=== PATIENT | male | born 1960 | race Caucasian/White ===

== ENCOUNTER 2016-08-16 07:57 | Inpatient (IN) | payer MEDICARE, MEDICAID ==
[2016-08-16] MEDS ORDERED: RINGERS SOLUTION,LACTATED 1,000 ML IV PRN (08:34)
[2016-08-16] MEDS ORDERED: CEFAZOLIN SODIUM 1 GM in DEXTROSE 5%-WATER 50 ML IV SCH (08:45)
[2016-08-16 09:09] LABS: HEMATOCRIT 38.1 % (37.9-51.0); HEMOGLOBIN 12.7 g/dL (13.5-17.0); MEAN CORPUSCULAR HEMOGLOBIN 29.5 pg (27.0-33.4); MEAN CORPUSCULAR HGB CONC 33.4 g/dL (32.0-36.0); MEAN CORPUSCULAR VOLUME 88 fl (80-97); RED BLOOD COUNT 4.31 10^6/uL (4.35-5.55); RED CELL DISTRIBUTION WIDTH 15.1 % (11.5-14.0); WHITE BLOOD COUNT 10.3 10^3/uL (4.0-10.5)
[2016-08-16] MEDS ORDERED: ROCURONIUM BROMIDE INJ 50 MG/5 ML VIAL IV ONE (10:15)
[2016-08-16] MEDS ORDERED: GLYCOPYRROLATE INJ 0.4 MG/2 ML VIAL ONE (10:15)
[2016-08-16] MEDS ORDERED: ONDANSETRON HCL INJ/PF 4 MG/2 ML SDV ONE (10:15)
[2016-08-16] MEDS ORDERED: NEOSTIGMINE METHYLSULFATE 10 MG/10 ML VIAL ONE (10:15)
[2016-08-16] MEDS ORDERED: SUCCINYLCHOLINE CHLORIDE INJ 200 MG/10 ML VIAL ONE (10:15)
[2016-08-16] MEDS ORDERED: HYDROMORPHONE HCL INJ/PF 2 MG/ML AMPULE ONE (10:50)
[2016-08-16] MEDS ORDERED: MIDAZOLAM 2 MG/2 ML INJ ONE (10:50)
[2016-08-16] MEDS ORDERED: PROPOFOL INJ 200 MG/20 ML VIAL IV ONE (10:51)
[2016-08-16] MEDS ORDERED: GLUCAGON,HUMAN RECOMB 1 MG INJ ONE (11:21)
[2016-08-16] MEDS ORDERED: MEPERIDINE HCL/PF INJ 25 MG/1 ML DISP.SYRIN IV PRN (11:31)
[2016-08-16] MEDS ORDERED: DIPHENHYDRAMINE HCL 50 MG/ML VIAL IV PRN (11:31)
[2016-08-16] MEDS ORDERED: FENTANYL CITRATE INJ/PF 100 MCG/2 ML AMPUL IV PRN ×3 (11:31)
[2016-08-16] MEDS ORDERED: MORPHINE SULFATE 10 MG/ML INJ IV PRN ×2 (11:31→16:08)
[2016-08-16] MEDS ORDERED: PROMETHAZINE HCL INJ 25 MG/1 ML VIAL IV PRN ×2 (11:31)
[2016-08-16] MEDS ORDERED: OXYCODONE-ACETAMINOPHEN 5-325 MG TABLET PO PRN ×2 (11:31)
[2016-08-16] MEDS ORDERED: CEFAZOLIN INJ 1 GM VIAL ONE (13:12)
[2016-08-16] MEDS ORDERED: BUPIVACAINE INJ/PF LIPOSOME/PF 266 MG/20 ML SDV ONE (13:15)
[2016-08-16] MEDS ORDERED: FENTANYL CITRATE INJ/PF 250 MCG/5 ML AMPULE ONE (13:17)
[2016-08-16] MEDS ORDERED: BUPIVACAINE HCL 0.25 % INJ/PF (2.5 MG/1 ML) 30 ML VIAL ONE (13:17)
--- NOTE | 2016-08-16 14:22 | Operative Report ---
Operative Report DATE OF SURGERY: 08/16/16 PREOPERATIVE DIAGNOSIS: Retained foreign bodies of the stomach POSTOPERATIVE DIAGNOSIS: Same with peptic ulcer disease OPERATION: 1. Esophagogastroduodenoscopy with partial removal of multiple foreign bodies from the stomach. 2. Limited exploratory laparotomy, gastrotomy , completion removal of foreign body from the stomach. 3. Placement of ante- cardiac drain SURGEON: FELICITA IGLESIAS 1ST RACING DRIVER: NEHEMIAH MAZA ANESTHESIA: GA TISSUE REMOVED OR ALTERED: Multiple foreign bodies in the stomach COMPLICATIONS: None ESTIMATED BLOOD LOSS: scant INTRAOPERATIVE FINDINGS: See below PROCEDURE: After obtaining informed consent the patient taken the operating room where general anesthesia was induced. Surgical plan surgical timeout were conducted. The plan was to proceed with endoscopic removal of retained foreign bodies in the stomach. We were prepared for conversion to an open laparotomy if unsuccessful. The patient was placed in the semirecumbent position. The patient has been intubated oral tracheally with a #7 endotracheal tube. We performed upper endoscopy with the flexible adult upper endoscope. The pharynx and esophagus were essentially unremarkable. The GE junction was approximately 40 cm from the incisor. Upon entry into the stomach, multiple round semi-elongated masses were identified. No free, floating in the of the pylorus, but the largest masses were in the proximal stomach and gastric cardia. Graft of note there was distal Alor ulceration, with some however there was no augusto obstruction as there was no evidence of retained gastric contents. We are able to advance the gastroscope through the pylorus into the first and second portions of the duodenum. No evidence of retained foreign body duodenum We brought the scope back to the pylorus. Using a combination of multiple retrieving devices including forceps, snare, and rothnet, multiple fragments were removed from the stomach in a piecemeal fashion. Specimens were were semisolid to rubbery. We sent one to pathology and they concluded that most likely silicon, or some other foreign body but not vegetable matter. We spent the next 2 hours retrieving these rounded specimen ranging from 2-3 cm in diameter. This proceeded uneventfully, methodically and painstakingly. Right these efforts, due to size, we could not remove the largest foreign bodies mass which was a 5-6 cm material ball. Therefore we decided to convert to an open procedure complete, successful removal of the gastric foreign bodies. Endoscopy team to part of the room after successful removal of the adult gastroscope. Anesthesia did place a nasogastric tube. Arms were abducted, abdomen exposed, and the abdomen prepped and draped sterile fashion. Surgical plan surgical time out conducted. The abdomen was opened through a standard midline incision from the area to above the umbilicus. Quarter Percent Marcaine was used prior to the incision. Perineal cavity was carefully opened, and a small bowel for a tract was positioned to place. Ostomy, there was a significant amount of gas in the small bowel and transverse colon. The viscera were tucked away, and the anterior surface of the midportion of the stomach was exposed. We planned our gastrotomy which was vertically oriented in the mid portion of the stomach. 2 3 -0 PDS sutures were placed approximately 5 cm apart and a vertically oriented gastrotomy was made with electrocautery. Spillage of gastric contents. Previously position nasogastric tube into the antrum. Using a Aramis's forceps and gentle manipulation of the stomach, we were able to bring the largest foreign body retained in the stomach out through the gastrotomy. This were suctioned out. We felt like this was in fact the last of the foreign bodies retained in the stomach based on a thorough, comprehensive endoscopic experience 2 hours earlier. We felt that admission and been accomplished. The gastrotomy was closed vertically with a inner running layer of 3-0 PDS suture and outer layer of interrupted horizontally oriented mattress sutures of 3-0 PDS. A large Evin drain was placed in the left upper quadrant trimmed to the appropriate length, secured to the anterior abdominal wall with 2-0 Prolene suture, the free and placed over the anterior stomach wall. Sponge and needle counts are correct. Abdominal wall was closed with 2 double-stranded #1 PDS sutures, skin closed with lizbeth Postoperatively well. Nasogastric tube, and Castellano catheter left in position. Of note the Castellano catheter was inserted prior to laparotomy. The patient was successfully extubated and recovered The physician advertising sales assistant, Ms. Maza, provided assistance during this case by: Assisting retracting tissue, instillation of local anesthesia and closure of skin incisions.
[2016-08-16] MEDS ORDERED: FENTANYL CITRATE INJ/PF 100 MCG/2 ML AMPUL ONE (14:28)
[2016-08-16] MEDS ORDERED: FENTANYL CITRATE INJ/PF 100 MCG/2 ML AMPUL INJ ONE (14:30)
[2016-08-16] MEDS ORDERED: PHARMACY COMMUNICATION ORDER MC NR (14:30)
--- NOTE | 2016-08-16 16:41 | PDOC CONSULTATION ---
Consultation Consult Date: 08/16/16 Attending physician:: FELICITA IGLESIAS Consult reason:: Pain management History of Present Illness Admission Date/PCP: 08/16/2016 Patient complains of: Back pain History of Present Illness: GRIFFIN FRANK is a 56 year old male who has chronic back pain for which she takes methadone 10 mg 3 times a day who was admitted from the surgery service after having an open gastrotomy for removal of foreign body. The surgeons have asked us to manage his pain medicine given the fact that he takes chronic methadone. Past Medical History Cardiac Medical History: Denies: Coronary Artery Disease, Myocardial Infarction, Hypertension Pulmonary Medical History: Denies: Asthma, Bronchitis, Chronic Obstructive Pulmonary Disease (COPD), Pneumonia Neurological Medical History: Denies: Seizures Endocrine Medical History: Reports: None Malignancy Medical History: Reports: None GI Medical History: Reports: Other - Irritable bowel syndrome Musculoskeltal Medical History: Denies: Arthritis Skin Medical History: Reports: None Traumatic Medical History: Reports: None Hematology: Reports: Anemia Infectious Medical History: Reports: None Past Surgical History Past Surgical History: Reports: Appendectomy, Cholecystectomy, Orthopedic Surgery - Back surgery Social History Information Source: Patient Smoking Status: Current Every Day Smoker Frequency of Alcohol Use: None Hx Recreational Drug Use: No Drugs: None - Advance Directive Resuscitation Status: Full Code Family History Family History: Mother is 73 alive and has asthma and hypertension. Father's health history is unknown. Parental Family History Reviewed: Yes Children Family History Reviewed: No Sibling(s) Family History Reviewed.: No Medication/Allergy Home Medications: Atorvastatin Calcium 20 mg PO QHS 08/16/16 Dicyclomine HCl 20 mg PO QID 08/16/16 Methadone HCl 10 mg PO TID 08/16/16 Methocarbamol 500 mg PO TID 08/16/16 Nortriptyline HCl [Pamelor] 50 mg PO QHS 08/16/16 Omeprazole 40 mg PO BID 08/16/16 Pantoprazole Sodium 40 mg PO DAILY 08/16/16 Sucralfate [Carafate 1 gm Tablet] 1 gm PO ACHS 08/16/16 Tramadol HCl 50 mg PO Q4H 08/16/16 Allergies/Adverse Reactions: No Known Allergies Allergy (Unverified 08/16/16 08:47) Review of Systems Constitutional: ABSENT: chills, fever(s), headache(s), weight gain, weight loss Eyes: ABSENT: visual disturbances Ears: ABSENT: hearing changes Cardiovascular: ABSENT: chest pain, dyspnea on exertion, edema, orthropnea, palpitations Respiratory: ABSENT: cough, hemoptysis Gastrointestinal: PRESENT: as per HPI Genitourinary: ABSENT: dysuria, hematuria Musculoskeletal: PRESENT: back pain. ABSENT: joint swelling Integumentary: ABSENT: rash, wounds Neurological: ABSENT: abnormal gait, abnormal speech, confusion, dizziness, focal weakness, syncope Psychiatric: ABSENT: anxiety, depression Endocrine: ABSENT: cold intolerance, heat intolerance, polydipsia, polyuria Hematologic/Lymphatic: ABSENT: easy bleeding, easy bruising Physical Exam Vital Signs: Temp Pulse Resp BP Pulse Ox 98.2 F 86 15 147/86 H 97 08/16/16 14:13 08/16/16 14:58 08/16/16 14:58 08/16/16 14:58 08/16/16 14:58 Intake & Output 08/15/16 08/16/16 08/17/16 06:59 06:59 06:59 Intake Total 2150 Output Total 328 Balance 1822 Weight 72.12 kg General appearance: PRESENT: no acute distress Head exam: PRESENT: atraumatic, normocephalic Eye exam: PRESENT: conjunctiva pink, EOMI, PERRLA. ABSENT: scleral icterus Ear exam: PRESENT: normal external ear exam Mouth exam: PRESENT: moist, tongue midline Neck exam: ABSENT: carotid bruit, JVD, lymphadenopathy, thyromegaly Respiratory exam: PRESENT: clear to auscultation cristi. ABSENT: rales, rhonchi, wheezes Cardiovascular exam: PRESENT: RRR. ABSENT: diastolic murmur, rubs, systolic murmur Pulses: PRESENT: normal dorsalis pedis pul Vascular exam: PRESENT: normal capillary refill GI/Abdominal exam: PRESENT: other - Abdominal dressing in place with a drain in place. Rectal exam: PRESENT: deferred Extremities exam: PRESENT: full ROM. ABSENT: calf tenderness, clubbing, pedal edema Neurological exam: PRESENT: alert, awake, oriented to person, oriented to place , oriented to time, oriented to situation, CN II-XII grossly intact. ABSENT: motor sensory deficit Psychiatric exam: PRESENT: appropriate affect Skin exam: PRESENT: dry, intact, warm. ABSENT: cyanosis, rash Results Laboratory Results: 08/16/16 08:53 08/16/16 08:53 WBC 10.3 RBC 4.31 L Hgb 12.7 L Hct 38.1 MCV 88 MCH 29.5 MCHC 33.4 RDW 15.1 H Plt Count 348 Assessment & Plan - Diagnosis (1) Bezoar Is this a current diagnosis for this admission?: YesPlan: Patient had surgery today with removal of foreign body from his stomach (2) Back pain Is this a current diagnosis for this admission?: YesPlan: Patient is chronically on methadone. We'll give IV morphine and increase as needed. (3) Hyperlipidemia Is this a current diagnosis for this admission?: YesPlan: We'll restart Lipitor when he is able to take by mouth (4) Irritable bowel syndrome (IBS) Is this a current diagnosis for this admission?: Yes - Time Time Spent: 50 to 70 Minutes - Inpatient Certification Medical Necessity: Need Close Monitoring Due to Risk of Patient Decompensation, Need for Surgery
[2016-08-16] MEDS: MORPHINE SULFATE 10 MG/ML INJ IV PRN ×3 (18:41→23:06)
[2016-08-16] MEDS: PANTOPRAZOLE SODIUM 40 MG VIAL IV SCH (21:28)
[2016-08-16] MEDS: DEXTROSE 5%-LACTATED RINGERS 1,000 ML IV PRN (21:29)
[2016-08-17] MEDS: MORPHINE SULFATE 10 MG/ML INJ IV PRN ×8 (01:35→20:09)
[2016-08-17] MEDS: DEXTROSE 5%-LACTATED RINGERS 1,000 ML IV PRN ×3 (05:09→20:09)
[2016-08-17] MEDS: PANTOPRAZOLE SODIUM 40 MG VIAL IV SCH ×2 (09:29→21:12)
[2016-08-17] MEDS: KETOROLAC TROMETHAMINE INJ/PF 30 MG/1 ML SDV IV PRN ×3 (09:29→21:58)
[2016-08-17] MEDS: FENTANYL 50 MCG/HR PATCH.TD72 TD SCH (09:29)
--- NOTE | 2016-08-17 10:21 | PDOC PROGRESS REPORT ---
Subjective Progress Note for:: 08/17/16 Subjective:: Complaining of abdominal pain; the patient had Castellano catheter removed and is voiding. Physical Exam Vital Signs: Temp Pulse Resp BP Pulse Ox 98.2 F 74 16 135/85 H 99 08/17/16 08:00 08/17/16 08:00 08/17/16 08:00 08/17/16 08:00 08/17/16 08:00 Intake & Output 08/16/16 08/17/16 08/18/16 06:59 06:59 06:59 Intake Total 3950 2401 Output Total 2409 175 Balance 1541 2226 Weight 7.8 kg General appearance: PRESENT: no acute distress Head exam: PRESENT: other - Nasogastric tube draining bilious material, approximate 500 cc overnight GI/Abdominal exam: PRESENT: other - A midline incision covered; drain with minimal serous Results Laboratory Results: 08/16/16 08:53 Assessment & Plan - Diagnosis (1) Bezoar Is this a current diagnosis for this admission?: YesPlan: 1. Patient is one day status post EGD, foreign body extraction,, conversion to exploratory laparotomy, gastrotomy, doing well no complications. Castellano catheter out, voiding. Nasogastric tube draining appropriately. 2. Will ambulate the patient, keep nothing by mouth 3. Appreciate hospitalist assistance
--- NOTE | 2016-08-17 11:33 | PDOC PROGRESS REPORT ---
Subjective Progress Note for:: 08/17/16 Subjective:: This reports the morphine helps with the pain but he does have worsening pain in between his dosing. Physical Exam Vital Signs: Temp Pulse Resp BP Pulse Ox 98.2 F 74 16 135/85 H 99 08/17/16 08:00 08/17/16 08:00 08/17/16 08:00 08/17/16 08:00 08/17/16 08:00 Intake & Output 08/16/16 08/17/16 08/18/16 06:59 06:59 06:59 Intake Total 3950 2401 Output Total 2409 175 Balance 1541 2226 Weight 7.8 kg General appearance: PRESENT: no acute distress Eye exam: PRESENT: conjunctiva pink. ABSENT: scleral icterus Ear exam: PRESENT: normal external ear exam Mouth exam: PRESENT: moist, tongue midline Neck exam: ABSENT: JVD Respiratory exam: PRESENT: clear to auscultation cristi. ABSENT: rales, rhonchi, wheezes Cardiovascular exam: PRESENT: RRR. ABSENT: diastolic murmur, rubs, systolic murmur GI/Abdominal exam: PRESENT: tenderness - Minimal tenderness around surgical site.. ABSENT: distended, guarding, mass, organolmegaly, rebound Extremities exam: PRESENT: full ROM. ABSENT: calf tenderness, clubbing, pedal edema Neurological exam: PRESENT: alert, awake, oriented to person, oriented to place , oriented to time, oriented to situation Psychiatric exam: PRESENT: appropriate affect Skin exam: PRESENT: dry, intact, warm. ABSENT: cyanosis, rash Results Laboratory Results: 08/16/16 08:53 Assessment & Plan - Diagnosis (1) Bezoar Is this a current diagnosis for this admission?: YesPlan: Patient had surgery with removal of foreign body from his stomach (2) Back pain Is this a current diagnosis for this admission?: YesPlan: Patient is chronically on methadone. We'll start the patient on a fentanyl patch until he is able to take his methadone orally. We'll continue with morphine IV when necessary. (3) Hyperlipidemia Is this a current diagnosis for this admission?: YesPlan: We'll restart Lipitor when he is able to take by mouth (4) Irritable bowel syndrome (IBS) Is this a current diagnosis for this admission?: Yes - Time Time Spent with patient: 15-24 minutes - Inpatient Certification Medical Necessity: Need For IV Fluids
[2016-08-18] MEDS: DEXTROSE 5%-LACTATED RINGERS 1,000 ML IV PRN ×3 (03:15→22:04)
[2016-08-18] MEDS: KETOROLAC TROMETHAMINE INJ/PF 30 MG/1 ML SDV IV PRN ×3 (04:52→19:34)
[2016-08-18 06:36] LABS: ANION GAP 9 (5-19); BLOOD UREA NITROGEN 11 mg/dL (7-20); CALCIUM 8.8 mg/dL (8.4-10.2); CARBON DIOXIDE 27 mmol/L (22-30); CHLORIDE 103 mmol/L (98-107); CREATININE RESULT 0.51 mg/dL (0.52-1.25); GLUCOSE 118 mg/dL (75-110); POTASSIUM 3.5 mmol/L (3.6-5.0); SODIUM 138.5 mmol/L (137-145)
--- NOTE | 2016-08-18 08:00 | PDOC PROGRESS REPORT ---
Subjective Progress Note for:: 08/18/16 Subjective:: Past flatus; ambulating ; walked in halls 3 times. Physical Exam Vital Signs: Temp Pulse Resp BP Pulse Ox 98.8 F 76 18 133/85 H 100 08/18/16 07:17 08/18/16 07:17 08/18/16 07:17 08/18/16 07:17 08/18/16 07:17 Intake & Output 08/17/16 08/18/16 08/19/16 06:59 06:59 06:59 Intake Total 3950 4201 Output Total 2409 925 Balance 1541 3276 Weight 7.8 kg 72.7 kg General appearance: PRESENT: no acute distress Head exam: PRESENT: other - Nasogastric tube was approximately 3 50 mL of drainage overnight GI/Abdominal exam: PRESENT: other - Dressing dry and intact; serous sanguinous drainage from abdominal drain; the abdomen is soft nontender no peritoneal signs Results Laboratory Results: 08/16/16 08:53 08/18/16 05:50 08/18/16 05:50 Sodium 138.5 Potassium 3.5 L Chloride 103 Carbon Dioxide 27 Anion Gap 9 BUN 11 Creatinine 0.51 L Est GFR ( Amer) > 60 Est GFR (Non-Af Amer) > 60 Glucose 118 H Calcium 8.8 Assessment & Plan - Diagnosis (1) Bezoar Is this a current diagnosis for this admission?: YesPlan: 1. Change dressing today, leave drain in 2. Will obtain limited upper GI study to make sure there is no leak in the stomach, no gastric outlet obstruction as the patient did have pyloric channel ulceration. If study negative, we will pull nasogastric tube.
[2016-08-18] MEDS: PANTOPRAZOLE SODIUM 40 MG VIAL IV SCH ×2 (09:07→22:06)
[2016-08-18] MEDS: MORPHINE SULFATE 10 MG/ML INJ IV PRN ×3 (09:07→22:07)
--- NOTE | 2016-08-18 10:32 | PDOC PROGRESS REPORT ---
Subjective Progress Note for:: 08/18/16 Subjective:: Reports the pain is controlled with the Duragesic patch. Physical Exam Vital Signs: Temp Pulse Resp BP Pulse Ox 98.8 F 76 18 133/85 H 100 08/18/16 07:17 08/18/16 07:17 08/18/16 07:17 08/18/16 07:17 08/18/16 07:17 Intake & Output 08/17/16 08/18/16 08/19/16 06:59 06:59 06:59 Intake Total 3950 4201 Output Total 2409 925 Balance 1541 3276 Weight 7.8 kg 72.7 kg General appearance: PRESENT: no acute distress Eye exam: PRESENT: conjunctiva pink Neck exam: ABSENT: JVD Respiratory exam: PRESENT: clear to auscultation cristi. ABSENT: rales, rhonchi, wheezes Cardiovascular exam: PRESENT: RRR. ABSENT: diastolic murmur, rubs, systolic murmur GI/Abdominal exam: PRESENT: soft, other - Patient has a surgical dressing in place in the left upper quadrant.. ABSENT: distended, guarding, mass, organolmegaly, rebound Extremities exam: ABSENT: calf tenderness, clubbing, pedal edema Neurological exam: PRESENT: alert, awake, oriented to person, oriented to place , oriented to time, oriented to situation Psychiatric exam: PRESENT: appropriate affect Results Laboratory Results: 08/16/16 08:53 08/18/16 05:50 08/18/16 05:50 Sodium 138.5 Potassium 3.5 L Chloride 103 Carbon Dioxide 27 Anion Gap 9 BUN 11 Creatinine 0.51 L Est GFR ( Amer) > 60 Est GFR (Non-Af Amer) > 60 Glucose 118 H Calcium 8.8 Assessment & Plan - Diagnosis (1) Bezoar Is this a current diagnosis for this admission?: YesPlan: Patient had surgery with removal of foreign body from his stomach (2) Back pain Is this a current diagnosis for this admission?: YesPlan: Patient is chronically on methadone. Patient is controlled with fentanyl patch. When he is able to take by mouth would switch back to his chronic methadone dose. (3) Hyperlipidemia Is this a current diagnosis for this admission?: YesPlan: We'll restart Lipitor when he is able to take by mouth (4) Irritable bowel syndrome (IBS) Is this a current diagnosis for this admission?: Yes - Time Time Spent with patient: 25-34 minutes - Inpatient Certification Medical Necessity: Need Close Monitoring Due to Risk of Patient Decompensation, Need For IV Fluids
[2016-08-19] MEDS: KETOROLAC TROMETHAMINE INJ/PF 30 MG/1 ML SDV IV PRN ×3 (02:56→19:52)
[2016-08-19] MEDS: DEXTROSE 5%-LACTATED RINGERS 1,000 ML IV PRN ×3 (02:56→19:53)
[2016-08-19 06:39] LABS: ABSOLUTE BASOPHILS # (AUTO) 0.1 10^3/uL (0.0-0.2); ABSOLUTE EOSINOPHILS # (AUTO) 0.4 10^3/uL (0.0-0.6); ABSOLUTE LYMPHOCYTES (AUTO) 1.6 10^3/uL (0.5-4.7); ABSOLUTE MONOCYTES (AUTO) 0.8 10^3/uL (0.1-1.4); ABSOLUTE NEUT (AUTO) 5.7 10^3/uL (1.7-8.2); BASOPHILS % (AUTO) 0.8 % (0-2); HEMATOCRIT 33.4 % (37.9-51.0); HEMOGLOBIN 11.1 g/dL (13.5-17.0); HGB HCT DIFFERENCE -0.1; LYMPHOCYTES % (AUTO) 18.8 % (13-45); MEAN CORPUSCULAR HEMOGLOBIN 29.4 pg (27.0-33.4); MEAN CORPUSCULAR HGB CONC 33.2 g/dL (32.0-36.0); MEAN CORPUSCULAR VOLUME 88 fl (80-97); MONOCYTES % (AUTO) 9.4 % (3-13); RED BLOOD COUNT 3.78 10^6/uL (4.35-5.55); WHITE BLOOD COUNT 8.6 10^3/uL (4.0-10.5)
[2016-08-19 06:54] LABS: ANION GAP 9 (5-19); BLOOD UREA NITROGEN 10 mg/dL (7-20); CALCIUM 8.8 mg/dL (8.4-10.2); CARBON DIOXIDE 27 mmol/L (22-30); CHLORIDE 103 mmol/L (98-107); CREATININE RESULT 0.57 mg/dL (0.52-1.25); GLUCOSE 106 mg/dL (75-110); POTASSIUM 3.9 mmol/L (3.6-5.0); SODIUM 138.9 mmol/L (137-145)
[2016-08-19] MEDS: PANTOPRAZOLE SODIUM 40 MG VIAL IV SCH (09:13)
[2016-08-19] MEDS: MORPHINE SULFATE 10 MG/ML INJ IV PRN ×4 (09:13→22:59)
--- NOTE | 2016-08-19 14:40 | PDOC PROGRESS REPORT ---
Subjective Progress Note for:: 08/19/16 Subjective:: Reports the pain is controlled with the Duragesic patch. Physical Exam Vital Signs: Temp Pulse Resp BP Pulse Ox 98.4 F 70 18 121/56 L 99 08/19/16 11:49 08/19/16 11:49 08/19/16 11:49 08/19/16 11:49 08/19/16 11:49 Intake & Output 08/18/16 08/19/16 08/20/16 06:59 06:59 06:59 Intake Total 4201 3150 3372 Output Total 925 1190 25 Balance 3276 1960 3347 Weight 72.7 kg 78.3 kg General appearance: PRESENT: no acute distress Eye exam: PRESENT: conjunctiva pink. ABSENT: scleral icterus Mouth exam: PRESENT: moist, tongue midline Neck exam: ABSENT: JVD Respiratory exam: PRESENT: clear to auscultation cristi. ABSENT: rales, rhonchi, wheezes Cardiovascular exam: PRESENT: RRR. ABSENT: diastolic murmur, rubs, systolic murmur GI/Abdominal exam: PRESENT: other - Surgical dressing in place Extremities exam: ABSENT: calf tenderness, clubbing, pedal edema Neurological exam: PRESENT: alert, awake, oriented to person, oriented to place , oriented to time, oriented to situation Psychiatric exam: PRESENT: appropriate affect Skin exam: PRESENT: dry, intact, warm. ABSENT: cyanosis, rash Results Laboratory Results: 08/19/16 05:46 08/19/16 05:46 08/19/16 08/19/16 05:46 05:46 WBC 8.6 RBC 3.78 L Hgb 11.1 L Hct 33.4 L MCV 88 MCH 29.4 MCHC 33.2 RDW 15.0 H Plt Count 257 Seg Neutrophils % 66.0 Lymphocytes % 18.8 Monocytes % 9.4 Eosinophils % 5.0 Basophils % 0.8 Absolute Neutrophils 5.7 Absolute Lymphocytes 1.6 Absolute Monocytes 0.8 Absolute Eosinophils 0.4 Absolute Basophils 0.1 Sodium 138.9 Potassium 3.9 Chloride 103 Carbon Dioxide 27 Anion Gap 9 BUN 10 Creatinine 0.57 Est GFR ( Amer) > 60 Est GFR (Non-Af Amer) > 60 Glucose 106 Calcium 8.8 Impressions: Upper GI and Small Bowel X-Ray 08/18/16 07:57 IMPRESSION: NORMAL SINGLE CONTRAST SWALLOW UPPER GI SERIES. Normal proximal small bowel. Assessment & Plan - Diagnosis (1) Bezoar Is this a current diagnosis for this admission?: YesPlan: Patient had surgery with removal of foreign body from his stomach (2) Back pain Is this a current diagnosis for this admission?: YesPlan: Patient is chronically on methadone. Patient is controlled with fentanyl patch. When he is able to take by mouth would switch back to his chronic methadone dose. (3) Hyperlipidemia Is this a current diagnosis for this admission?: YesPlan: We'll restart Lipitor when he is able to take by mouth (4) Irritable bowel syndrome (IBS) Is this a current diagnosis for this admission?: Yes - Time Time Spent with patient: 25-34 minutes - Inpatient Certification Medical Necessity: Need Close Monitoring Due to Risk of Patient Decompensation
--- NOTE | 2016-08-19 15:45 | PDOC PROGRESS REPORT ---
Subjective Subjective:: No nausea or vomiting. + Flatus/BM. Minimal discomfort. Physical Exam Vital Signs: Temp Pulse Resp BP Pulse Ox 98.4 F 70 18 121/56 L 99 08/19/16 11:49 08/19/16 11:49 08/19/16 11:49 08/19/16 11:49 08/19/16 11:49 Intake & Output 08/18/16 08/19/16 08/20/16 06:59 06:59 06:59 Intake Total 4201 3150 3372 Output Total 925 1190 25 Balance 3276 1960 3347 Weight 72.7 kg 78.3 kg General appearance: PRESENT: no acute distress Eye exam: PRESENT: EOMI GI/Abdominal exam: PRESENT: soft, tenderness - Appropriate incisional tenderness. Incision is clean with waffle dressing. MACK drain has benign serosanguineous. Some bowel sounds.. ABSENT: distended Neurological exam: PRESENT: alert, oriented to situation Results Laboratory Results: 08/19/16 05:46 08/19/16 05:46 08/19/16 08/19/16 05:46 05:46 WBC 8.6 RBC 3.78 L Hgb 11.1 L Hct 33.4 L MCV 88 MCH 29.4 MCHC 33.2 RDW 15.0 H Plt Count 257 Seg Neutrophils % 66.0 Lymphocytes % 18.8 Monocytes % 9.4 Eosinophils % 5.0 Basophils % 0.8 Absolute Neutrophils 5.7 Absolute Lymphocytes 1.6 Absolute Monocytes 0.8 Absolute Eosinophils 0.4 Absolute Basophils 0.1 Sodium 138.9 Potassium 3.9 Chloride 103 Carbon Dioxide 27 Anion Gap 9 BUN 10 Creatinine 0.57 Est GFR ( Amer) > 60 Est GFR (Non-Af Amer) > 60 Glucose 106 Calcium 8.8 Impressions: Upper GI and Small Bowel X-Ray 08/18/16 07:57 IMPRESSION: NORMAL SINGLE CONTRAST SWALLOW UPPER GI SERIES. Normal proximal small bowel. Status: Image reviewed by me Assessment & Plan - Diagnosis (1) Foreign body ingestion Qualifiers: Encounter type: initial encounter Qualified Code(s): T18.9XXA - Foreign body of alimentary tract, part unspecified, initial encounter Is this a current diagnosis for this admission?: YesPlan: Status post gastrotomy with foreign body removal. Doing well. Swallow study yesterday was normal, no leak. Advance diet to clear liquids. (2) Bezoar Qualifiers: Encounter type: initial encounter Qualified Code(s): T18.9XXA - Foreign body of alimentary tract, part unspecified, initial encounter Is this a current diagnosis for this admission?: Yes
[2016-08-20] MEDS: MORPHINE SULFATE 10 MG/ML INJ IV PRN (01:34)
[2016-08-20] MEDS: KETOROLAC TROMETHAMINE INJ/PF 30 MG/1 ML SDV IV PRN ×4 (02:32→22:19)
[2016-08-20] MEDS: DEXTROSE 5%-LACTATED RINGERS 1,000 ML IV PRN (09:19)
[2016-08-20] MEDS: FENTANYL 50 MCG/HR PATCH.TD72 TD SCH (09:22)
--- NOTE | 2016-08-20 11:13 | PDOC PROGRESS REPORT ---
Subjective Progress Note for:: 08/20/16 Subjective:: Reports the pain is controlled with the Duragesic patch. Physical Exam Vital Signs: Temp Pulse Resp BP Pulse Ox 98.1 F 65 18 150/83 H 98 08/20/16 07:27 08/20/16 07:27 08/20/16 07:27 08/20/16 07:27 08/20/16 07:27 Intake & Output 08/19/16 08/20/16 08/21/16 06:59 06:59 06:59 Intake Total 3150 5277 Output Total 1190 55 Balance 1960 5222 Weight 78.3 kg 79.3 kg General appearance: PRESENT: no acute distress Eye exam: PRESENT: conjunctiva pink. ABSENT: scleral icterus Mouth exam: PRESENT: moist, tongue midline Neck exam: ABSENT: JVD Respiratory exam: PRESENT: clear to auscultation cristi. ABSENT: rales, rhonchi, wheezes Cardiovascular exam: PRESENT: RRR. ABSENT: diastolic murmur, rubs, systolic murmur GI/Abdominal exam: PRESENT: other - Dressing in place on the abdomen Extremities exam: ABSENT: calf tenderness, clubbing, pedal edema Neurological exam: PRESENT: alert, awake, oriented to person, oriented to place , oriented to time, oriented to situation Psychiatric exam: PRESENT: appropriate affect Results Laboratory Results: 08/19/16 05:46 08/19/16 05:46 Impressions: Upper GI and Small Bowel X-Ray 08/18/16 07:57 IMPRESSION: NORMAL SINGLE CONTRAST SWALLOW UPPER GI SERIES. Normal proximal small bowel. Assessment & Plan - Diagnosis (1) Bezoar Qualifiers: Encounter type: initial encounter Qualified Code(s): T18.9XXA - Foreign body of alimentary tract, part unspecified, initial encounter Is this a current diagnosis for this admission?: YesPlan: Patient had surgery with removal of foreign body from his stomach (2) Back pain Is this a current diagnosis for this admission?: YesPlan: Patient is chronically on methadone. Patient is controlled with fentanyl patch. When he is on a regular diet would switch back to his chronic methadone dose. (3) Hyperlipidemia Is this a current diagnosis for this admission?: YesPlan: We'll restart Lipitor when he is able to take by mouth (4) Irritable bowel syndrome (IBS) Is this a current diagnosis for this admission?: Yes - Time Time Spent with patient: 25-34 minutes - Inpatient Certification Medical Necessity: Need Close Monitoring Due to Risk of Patient Decompensation
[2016-08-20] MEDS ORDERED: OXYCODONE-ACETAMINOPHEN 5-325 MG TABLET PO PRN (11:50)
--- NOTE | 2016-08-20 11:50 | PDOC PROGRESS REPORT ---
Subjective Progress Note for:: 08/20/16 Subjective:: No complaints, positive flatus, tolerating clear liquids. Physical Exam Vital Signs: Temp Pulse Resp BP Pulse Ox 98.1 F 65 18 150/83 H 98 08/20/16 07:27 08/20/16 07:27 08/20/16 07:27 08/20/16 07:27 08/20/16 07:27 Intake & Output 08/19/16 08/20/16 08/21/16 06:59 06:59 06:59 Intake Total 3150 5277 Output Total 1190 55 Balance 1960 5222 Weight 78.3 kg 79.3 kg General appearance: PRESENT: no acute distress GI/Abdominal exam: PRESENT: other - Soft, nontender, lizbeth intact; drain removed uneventfully Results Laboratory Results: 08/19/16 05:46 08/19/16 05:46 Impressions: Upper GI and Small Bowel X-Ray 08/18/16 07:57 IMPRESSION: NORMAL SINGLE CONTRAST SWALLOW UPPER GI SERIES. Normal proximal small bowel. Assessment & Plan - Diagnosis (1) Bezoar Qualifiers: Encounter type: initial encounter Qualified Code(s): T18.9XXA - Foreign body of alimentary tract, part unspecified, initial encounter Is this a current diagnosis for this admission?: Yes (2) Foreign body ingestion Qualifiers: Encounter type: initial encounter Qualified Code(s): T18.9XXA - Foreign body of alimentary tract, part unspecified, initial encounter Is this a current diagnosis for this admission?: YesPlan: 1. Patient is 4 days status post gastrotomy, foreign body removal. He is doing well without complications. 2. Patient on clear liquids, start by mouth pain medication, DC IV, allowed patient to shower, anticipate discharge in next 24
[2016-08-20] MEDS: FAMOTIDINE 20 MG TABLET PO SCH (22:20)
[2016-08-21] MEDS: KETOROLAC TROMETHAMINE INJ/PF 30 MG/1 ML SDV IV PRN ×2 (05:47→12:44)
[2016-08-21 07:22] LABS: ABSOLUTE BASOPHILS # (AUTO) 0.1 10^3/uL (0.0-0.2); ABSOLUTE EOSINOPHILS # (AUTO) 0.5 10^3/uL (0.0-0.6); ABSOLUTE LYMPHOCYTES (AUTO) 1.6 10^3/uL (0.5-4.7); ABSOLUTE MONOCYTES (AUTO) 0.7 10^3/uL (0.1-1.4); ABSOLUTE NEUT (AUTO) 6.6 10^3/uL (1.7-8.2); BASOPHILS % (AUTO) 0.8 % (0-2); EOSINOPHILS % (AUTO) 4.8 % (0-6); HEMATOCRIT 33.4 % (37.9-51.0); HEMOGLOBIN 11.3 g/dL (13.5-17.0); HGB HCT DIFFERENCE 0.5; MEAN CORPUSCULAR HEMOGLOBIN 29.8 pg (27.0-33.4); MEAN CORPUSCULAR HGB CONC 33.9 g/dL (32.0-36.0); MEAN CORPUSCULAR VOLUME 88 fl (80-97); MONOCYTES % (AUTO) 7.8 % (3-13); RED BLOOD COUNT 3.79 10^6/uL (4.35-5.55); RED CELL DISTRIBUTION WIDTH 15.1 % (11.5-14.0); SEGMENTED NEUTROPHILS % (AUTO) 69.6 % (42-78); WHITE BLOOD COUNT 9.5 10^3/uL (4.0-10.5)
--- NOTE | 2016-08-21 09:43 | DISCHARGE SUMMARY E ---
Discharge Summary NAME: GRIFFIN FRANK : 1960 AGE: 56Y ADMITTED: 08/16/2016 DISCHARGED: 08/21/2016 REASON FOR ADMISSION: Retained foreign body in the stomach. SUMMARY OF HOSPITALIZATION: The patient is a 56-year-old white male who was found to have a retained foreign body in the stomach. He was brought to Ambulatory Surgery for removal. The patient was taken to the operating room by Dr. Greenberg on 08/16/2016 where he underwent esophagogastroduodenoscopy, partial removal of foreign bodies in the stomach, limited exploratory laparotomy, gastrotomy, and complete removal of retained foreign bodies. The patient tolerated the procedure well. Postoperatively, he did well, nasogastric tube removed, contrast study postoperative day 3 showed no evidence of a gastric leak with good gastric emptying. He was started on a diet and this was advanced to full liquids. The patient was also found to have evidence of peptic ulcer disease with ulcer at the pylorus. He was given appropriate antiulcer medication. By the fourth postoperative day, he was felt ready for discharge. FINAL DIAGNOSES: 1. Retained foreign body status post esophagogastroduodenoscopy, exploratory laparotomy, gastrotomy with foreign body removal. 2. Peptic ulcer disease. 3. History of methadone dependency. RECOMMENDATIONS: 1. Patient will be discharged home on full liquids, return to [facility] to see Dr. Greenberg or REINIER for staple removal. 2. Patient will be on Protonix 40 mg p.o. b.i.d.; patient will be provided a limited supply of Percocet, quantity 15. DICTATING PHYSICIAN: FELICITA GREENBERG M.D. [id number] PHY#: [id number] ID: [id number] JOB#: [id number] ACCT: [id number] cc:FELICITA GREENBERG M.D. >
[2016-08-21] MEDS ORDERED: PANTOPRAZOLE SODIUM 40 MG VIAL IV SCH (10:00)
[2016-08-21] MEDS: FAMOTIDINE 20 MG TABLET PO SCH (10:09)
[2016-08-21 13:04] VITALS: BP 139/80
--- NOTE | 2016-08-21 13:19 | PDOC PROGRESS REPORT ---
Subjective Progress Note for:: 08/21/16 Subjective:: Reports the pain is controlled with the Duragesic patch. He is taking liquids without difficulty. Physical Exam Vital Signs: Temp Pulse Resp BP Pulse Ox 98.2 F 63 16 138/79 H 98 08/21/16 12:26 08/21/16 12:26 08/21/16 12:26 08/21/16 12:26 08/21/16 12:26 Intake & Output 08/20/16 08/21/16 08/22/16 06:59 06:59 06:59 Intake Total 5277 1420 Output Total 55 Balance 5222 1420 Weight 79.3 kg 75.1 kg General appearance: PRESENT: no acute distress Eye exam: PRESENT: conjunctiva pink. ABSENT: scleral icterus Mouth exam: PRESENT: moist, tongue midline Neck exam: ABSENT: JVD Respiratory exam: PRESENT: clear to auscultation cristi. ABSENT: rales, rhonchi, wheezes Cardiovascular exam: PRESENT: RRR. ABSENT: diastolic murmur, rubs, systolic murmur GI/Abdominal exam: PRESENT: other - Dressing in place Extremities exam: ABSENT: calf tenderness, clubbing, pedal edema Neurological exam: PRESENT: alert, awake, oriented to person, oriented to place , oriented to time, oriented to situation Psychiatric exam: PRESENT: appropriate affect Results Laboratory Results: 08/21/16 06:50 08/19/16 05:46 08/21/16 06:50 WBC 9.5 RBC 3.79 L Hgb 11.3 L Hct 33.4 L MCV 88 MCH 29.8 MCHC 33.9 RDW 15.1 H Plt Count 262 Seg Neutrophils % 69.6 Lymphocytes % 17.0 Monocytes % 7.8 Eosinophils % 4.8 Basophils % 0.8 Absolute Neutrophils 6.6 Absolute Lymphocytes 1.6 Absolute Monocytes 0.7 Absolute Eosinophils 0.5 Absolute Basophils 0.1 Impressions: Upper GI and Small Bowel X-Ray 08/18/16 07:57 IMPRESSION: NORMAL SINGLE CONTRAST SWALLOW UPPER GI SERIES. Normal proximal small bowel. Assessment & Plan - Diagnosis (1) Bezoar Qualifiers: Encounter type: initial encounter Qualified Code(s): T18.9XXA - Foreign body of alimentary tract, part unspecified, initial encounter Is this a current diagnosis for this admission?: YesPlan: Patient had surgery with removal of foreign body from his stomach (2) Back pain Is this a current diagnosis for this admission?: YesPlan: Patient is chronically on methadone. Patient is controlled with fentanyl patch. We will DC the fentanyl patch and put back on methadone since he's able to take liquids without difficulty. Hospital service will sign off at this time if there is any further questions please feel free to contact us. (3) Hyperlipidemia Is this a current diagnosis for this admission?: YesPlan: We'll restart Lipitor when he is able to take by mouth (4) Irritable bowel syndrome (IBS) Is this a current diagnosis for this admission?: Yes - Time Time Spent with patient: 25-34 minutes - Inpatient Certification Medical Necessity: Need Close Monitoring Due to Risk of Patient Decompensation - Plan Summary Plan Summary: Hospitalist service will sign off at this time. Please call if any further questions.
[2016-08-21] MEDS ORDERED: METHADONE HCL 10 MG TABLET PO SCH (14:00)
[2016-08-21] MEDS ORDERED: METHOCARBAMOL 500 MG TABLET PO SCH (14:00)
[2016-08-21] MEDS ORDERED: ATORVASTATIN CALCIUM 20 MG TABLET PO SCH (22:00)
[2016-08-21] MEDS ORDERED: (PENDING PHARMACY ID) (Nortriptyline Hcl [Pamelor] 50 MG) PO SCH (22:00)
[2016-08-21] MEDS ORDERED: NORTRIPTYLINE HCL 25 MG CAPSULE PO SCH (22:00)
== END 2016-08-21 13:00 | disposition home or self-care (01) | DRG 327 ==
LOC: OROUT 07:57 → 4N 15:40 → OROUT 08-17 12:07
PROVIDERS: ADMIT Surgery; ATTEND Surgery
PROC: 0DC68ZZ Extirpation of Matter from Stomach, Via Natural or Artificial Opening Endoscopic (ICD-10-PCS; principal; 2016-08-16 10:30)
PROC: 0DC60ZZ Extirpation of Matter from Stomach, Open Approach (ICD-10-PCS; 2016-08-16 10:30)
DX: T18.2XXA Foreign body in stomach, initial encounter (principal); F11.20 Opioid dependence, uncomplicated; K27.9 Peptic ulcer, site unspecified, unspecified as acute or chronic, without hemorrhage or perforation; K21.9 Gastro-esophageal reflux disease without esophagitis; K58.9 Irritable bowel syndrome, unspecified; E78.5 Hyperlipidemia, unspecified; D64.9 Anemia, unspecified; M54.9 Dorsalgia, unspecified; G89.29 Other chronic pain; F17.210 Nicotine dependence, cigarettes, uncomplicated; X58.XXXA Exposure to other specified factors, initial encounter; Y93.9 Activity, unspecified; Y92.9 Unspecified place or not applicable
CPT/HCPCS: 36415; 74249; 790; 80048; 85025; 85027; 88300; 88329; C9290; J0330; J0690; J1170; J1610; J1885; J2250; J2270; J2405; J2704; J3010; J3490; S0164